=== PATIENT | female | born 1985 | race African-American/Black ===

== ENCOUNTER 2021-10-30 12:47 | Emergency (ER) | payer OTHER, MEDICAID ==
[~2021-10-30] VITALS: Ht 170.2 cm; Wt 65.8 kg
[~2021-10-30 12:47] MED LIST: AZITHROMYCIN 2250 MG PO; CARAFATE 1 GM TA1 G1 PO; CORTISPORIN OTI10 M2 OT; FLEXERIL PO; HYDROCODONE-AP1 EAC6 PO; NOHOMEMEDICATIONS; NORCO 5-325 TA1 EACH PO; PHENERGAN25 M2 RECTAL; PREDNISONE 20 M20 M1 PO; PROMETHAZINE-D120 ML PO; ZOFRAN ODT4 MG PO; ZPAK PO
[2021-10-30 15:49] VITALS: BP 97/43
== END 2021-10-30 15:52 | disposition home or self-care (01) ==
LOC: M.ERS 12:47
DX: R51.9 Headache, unspecified (principal); M25.512 Pain in left shoulder; M54.2 Cervicalgia; M54.6 Pain in thoracic spine; Z79.899 Other long term (current) drug therapy; V89.2XXA Person injured in unspecified motor-vehicle accident, traffic, initial encounter; Y93.I9 Activity, other involving external motion; Y92.488 Other paved roadways as the place of occurrence of the external cause; Y99.8 Other external cause status

== ENCOUNTER 2021-11-02 15:13 | Emergency (ER) | payer OTHER, MEDICAID ==
[~2021-11-02] VITALS: Ht 170.2 cm; Wt 65.8 kg
[2021-11-02] MEDS ORDERED: MEDROLDOSEPACK PO (15:52)
[2021-11-02] MEDS ORDERED: FLEXERIL PO (15:52)
[2021-11-02 16:00] VITALS: BP 99/66
== END 2021-11-02 16:00 ==
LOC: M.ERS 15:13
DX: M54.2 Cervicalgia (principal); R25.2 Cramp and spasm; V89.2XXA Person injured in unspecified motor-vehicle accident, traffic, initial encounter; Y93.89 Activity, other specified; Y92.488 Other paved roadways as the place of occurrence of the external cause; Y99.8 Other external cause status